=== PATIENT | male | born 1975 | race Caucasian/White ===

== ENCOUNTER 2019-09-22 10:01 | Emergency (ER) | payer BC, SELFPAY ==
[2019-09-22 10:03] VITALS: BP 177/132; PULSE 70; RESP 21; TEMP 36.6; O2SAT 97; BMI 51.4
--- NOTE | 2019-09-22 10:15 | XR_ITS ---
PROCEDURE: XR CHEST 2V CLINICAL HISTORY: shortness of breath COMPARISON: No exams were available for comparison FINDINGS: The cardiomediastinal silhouette and pulmonary vascularity are within normal limits. The lungs are clear without infiltrates, suspicious nodules, or pleural effusions. No acute bony abnormalities. IMPRESSION: No acute findings. Dictated by: Khurram Hooks MD 09/22/2019 10:51 Electronically signed by Khurram Hooks MD in [place] 09/22/2019 10:51
[2019-09-22 10:32] LABS: Basophils % 0.4 % (0.1-2.0); Eosinophils # 0.2 K/mm3 (0.0-0.4); Eosinophils % 1.8 % (0.1-12.0); Hemoglobin 14.2 g/dL (14.1-18.0); Lymphocytes # 1.6 K/mm3 (0.7-4.5); Lymphocytes % 17.8 % (10-50); Mean Corpuscular HGB Conc 33.1 g/dL (31.8-35.4); Mean Corpuscular Volume 81.7 fl (80-94); Mean Platelet Volume 7.3 fl (7.4-10.4); Monocytes # 0.5 K/mm3 (0.1-1.0); Monocytes % 5.5 % (1.7-9.3); Neutrophils # 6.6 K/mm3 (1.8-7.8); Neutrophils % 74.6 % (37.0-80.0); Platelet Count 271 K/mm3 (142-424); Red Blood Count 5.27 M/mm3 (4.60-6.20); Red Cell Distribution Width 14.7 % (11.5-17.5); White Blood Count 8.9 K/mm3 (4.8-10.8)
[2019-09-22 10:37] LABS: Alanine Aminotransferase 54 U/L (12-78); Albumin Level 4.7 g/dl (3.5-5.0); Albumin/Globulin Ratio 1.3 (1.1-1.8); Alkaline Phosphatase 105 U/L (38-126); Anion Gap 11.7 mEq/L (5-15); Aspartate Amino Transferase 45 U/L (17-59); Bilirubin,Total 0.5 mg/dl (0.2-1.3); Blood Urea Nitrogen 11 mg/dl (9-20); Calcium 9.6 mg/dl (8.4-10.2); Carbon Dioxide 26 mmol/L (22.0-30.0); Chloride 102 mmol/L (98-107); Creatinine Clearance Estimated 154 mL/min (50-200); Estimated Glomerular Filt Rate 123 ml/min (>60); GFR (African American) 149 ML/MIN (>60); Globulin 3.5 g/dL (1.3-3.2); Glucose 121 mg/dl (74-100); Potassium 3.7 mmoL/L (3.5-5.1); Sodium 136 mmol/L (136-145); Total Protein,Serum 8.2 g/dl (6.3-8.2)
--- NOTE | 2019-09-22 10:40 | [facility].EDSOB ---
ED Disposition Clinical Impression: Hypertension Disposition: Home, Self-Care Condition on Discharge: Good Instructions: The DASH Diet, Treatments for High Blood Pressure: More Than Just Taking a Pill Prescriptions: Losartan Potassium 50 mg PO DAILY 30 Days #30 tab Transmission Status: Pending to [facility] #[id number] Referrals: Provider,Referral, [Primary Care Provider] - - Critical Care Critical Care Time: No Attestation: On 09/22/19, the high probability of a clinically significant, sudden or life threatening deterioration of the following system(s) required my full and direct attention, intervention and personal management. The time I documented below is in addition to time spent performing reported procedures but includes the following listed in this critical care notation. Medical Decision Making - Medical Records Medical records reviewed: Yes: I reviewed the patient's medical records. - Magno Inquiry Pt receiving controlled substance: No Vital Signs: 09/22/19 10:03 Temperature 97.8 F Temperature Source Oral Pulse Rate [Radial] 70 Respiratory Rate 21 Blood Pressure [Right Arm] 177/132 H Blood Pressure Mean [Right Arm] 147 Blood Pressure Source [Right Arm] Automatic Cuff Blood Pressure Position [Right Arm] Sitting 02 Sat by Pulse Oximetry 97 Oxygen Delivery Method Room Air - Lab Data Lab results reviewed: Yes: I reviewed the patient's lab results. Lab Results 09/22/19 10:21: WBC 8.9, RBC 5.27, Hgb 14.2, Hct 43.0, MCV 81.7, MCH 27.0, MCHC 33.1, RDW 14.7, Plt Count 271, MPV 7.3 L, Neut % (Auto) 74.6, Lymph % (Auto) 17.8, [place] % (Auto) 5.5, Eos % (Auto) 1.8, Baso % (Auto) 0.4, Neut # (Auto) 6.6, Lymph # (Auto) 1.6, [place] # (Auto) 0.5, Eos # (Auto) 0.2, Baso # (Auto) 0.0 09/22/19 10:21: Sodium 136, Potassium 3.7, Chloride 102, Carbon Dioxide 26, Anion Gap 11.7, BUN 11, Creatinine 0.70, Estimated Creat Clear 154, Estimated GFR 123, Est GFR ( Amer) 149, Glucose 121 H, Calcium 9.6, Total Bilirubin 0.5, AST 45, ALT 54, Alkaline Phosphatase 105, Total Protein 8.2, Albumin 4.7, Globulin 3.5 H, Albumin/Globulin Ratio 1.3 Result diagrams: 09/22/19 10:21 09/22/19 10:21 Orders (Tests/Meds): ORDERS Category Date Time Status Chest XR 2 view (NOT portable) [XR chest 2V] Stat Exams 09/22/19 10:15 Taken Resp/SOB HPI - General Chief Complaint: Shortness of Breath/Dyspnea Stated Complaint: SOA Time Seen by Provider: 09/22/19 10:41 Mode of Arrival: Ambulatory Source of Information: Patient Limitations: No Limitations Description of Symptoms (Recalled from ER Triage Doc. by RN): States that he was wearing his mask at work and just hyperventilated and felt as if he was goint to pass out. - History of Present Illness 43-year-old male presents the ED with hyperventilating after wearing a mask at work. Otherwise no other acute issues. This took place roughly 1 hour ago. Patient's blood pressure is elevated as well. MD Complaint: shortness of breath Onset (ago): minute(s) Context: other (Wearing a protective mask) Severity: mild Consistency/Duration: now resolved Relieving factors: nothing Exacerbating factors: nothing Known history of: other (Morbid obesity) - Related Data Previous Rx's Medication Instructions Recorded Losartan Potassium 50 mg PO DAILY 30 Days #30 tab 09/22/19 Allergies Allergy/AdvReac Type Severity Reaction Status Date / Time No Known Allergies Allergy Verified 09/22/19 10:14 [facility] History - Hepatitis A Screen Drug use history?: No High risk sexual behaviors?: No History of sexually transmitted infection?: No Currently employed?: No Childcare worker?: No Do you have indoor plumbing?: Yes Do you have electricity?: Yes Attestation statement:: This patient has been screened for Hepatitis A risk factors. I have reviewed the patient's past medical history: Yes - Social History Educational Level: Completed High School Alcohol In
[2019-09-22 10:59] VITALS: BP 177/132; PULSE 70; RESP 18; TEMP 36.7; O2SAT 98
== END 2019-09-22 11:01 | disposition home or self-care (01) ==
PROVIDERS: Emergency Provider Family Medicine
DX: R06.02 Shortness of breath (principal); I10 Essential (primary) hypertension; E66.01 Morbid (severe) obesity due to excess calories; Z68.43 Body mass index [BMI] 50.0-59.9, adult
CPT/HCPCS: 71046; 80053; 85025; 99282